=== PATIENT | female | born 1955 | race Caucasian/White ===

== ENCOUNTER 2020-04-16 13:31 | Outpatient (CLI) | payer BC ==
--- NOTE | 2020-04-16 16:37 | RAD ---
RIGHT HIP: History: Hip pain. FINDINGS: Femoral head contour is normal. No significant degenerative change. No fracture or acute osseous lesi on. IMPRESSION: Unremarkable right hip. POS: AGW
--- NOTE | 2020-04-16 17:07 | RAD ---
RIGHT KNEE THREE VIEWS: History: Knee pain FINDINGS: Moderate degenerative changes. Bilateral marginal osteophytes and spurring from the tibial spines. Mi ld loss of medial joint space. Prominent spurring and joint narrowing at the patellofemoral joint. No significant effusions. No fracture. IMPRESSION: Moderate degenerative changes as described. POS: AGW
== END 2020-04-16 13:32 | disposition home or self-care (01) ==
LOC: SCSRAD 13:31
PROVIDERS: ATTEND Family Medicine
DX: M79.604 Pain in right leg (principal); M17.11 Unilateral primary osteoarthritis, right knee

== ENCOUNTER 2021-06-16 13:42 | Outpatient (CLI) | payer MEDICARE | END 2021-06-16 13:43 | disposition home or self-care (01) | LOC: LABBT 13:42 | PROVIDERS: ATTEND Orthopaedic Surgery | DX: Z01.818 Encounter for other preprocedural examination (principal); M17.11 Unilateral primary osteoarthritis, right knee; Z20.822 Contact with and (suspected) exposure to COVID-19 | CPT/HCPCS: 71046; 80048; 81003; 85025; 85610; 86850; 86900; 86901; 87081; 93005; U0003; U0005; 93010 ==

== ENCOUNTER 2021-06-21 09:28 | Inpatient (IN) | payer MEDICARE ==
[2021-06-16 15:32] LABS: #Eosinphils 0.3 10x3/uL (0.0-0.5); #Monocytes 0.5 10x3/uL (0.0-1.1); %Basophils 1.1 % (0.0-2.0); %Eosinophils 8.2 % (0.0-6.0); %Lymphocytes 28.3 % (18.0-47.0); %Monocytes 12.7 % (0.0-10.0); Hemoglobin 13.3 g/dL (12.0-15.5); Mean Corpuscular HGB CONC 32.5 g/dL (32.0-36.0); Mean Corpuscular Hemoglobin 29.4 pg (27.0-33.0); Mean Corpuscular Volume 90.5 fl (81.6-98.3); Mean Platelet Volume 8.9 fl (7.4-10.4); Platelet Count 161 10x3/uL (150-450); RBC Distribution Width 12.6 % (11.5-14.5); Red Blood Cell (RBC) Count 4.52 10x6/uL (3.90-5.03); White Blood Cell (WBC) Count 3.8 10x3/uL (3.5-10.5)
[2021-06-16 15:41] LABS: %Neutrophils 51.5 % (40.0-75.0)
[2021-06-16 15:43] LABS: Bilirubin Neg (Negative); Blood, Urine Negative (Negative); Clarity Cloudy (Clear); Glucose, Urine (Dipstick) Normal (Negative); Ketone, Urine 5 mg/dL (Negative); Leukocyte 500 (Negative); Nitrite Negative (Negative); Protein, Urine (Dipstick) 30 mg/dl (Neg-Trace); Specific Gravity, Urine 1.025 (1.002-1.036)
[2021-06-16 15:45] LABS: Prothrombin Time 11.5 sec (9.5-12.1)
[2021-06-16 16:00] LABS: Anion Gap 14 mmol/L (10-20); BUN (Urea Nitrogen) 17 mg/dL (9.8-20.1); Calc. Creatinine Clearance 0 mL/min (70-130); Calcium 9.7 mg/dL (7.8-10.44); Carbon Dioxide 24 mmol/L (23-31); Chloride 111 mmol/L (98-107); Glucose 96 mg/dL (80-115); Potassium 4.5 mmol/L (3.5-5.1); Sodium 144 mmol/L (136-145)
[2021-06-17 00:40] LABS: SARS-CoV-2 PCR by NAA Not Detected (NotDetected)
[2021-06-17 14:23] VITALS: BMI 37.3
[2021-06-21] MEDS ORDERED: Tranexamic Acid 1,000 MG/10 ML VIAL ONE (09:55)
[2021-06-21] MEDS ORDERED: Sodium Chloride 0.9% 100 ML ONE (09:55)
[2021-06-21] MEDS ORDERED: ceFAZolin 2 GM/DEX 5% 100 ML BAG ONE (09:55)
[2021-06-21] MEDS ORDERED: Vancomycin 1.5 GRAM/300 ML BAG 1.5 GM in Premix Bag 1 BAG IVPB SCH (10:15)
[2021-06-21] MEDS ORDERED: Fentanyl 100 MCG/2 ML VIAL ONE ×5 (10:54→16:07)
[2021-06-21] MEDS ORDERED: Midazolam HCl 2 mg/2 ml Vial ONE (10:54)
[2021-06-21] MEDS ORDERED: Bupivacaine HCl 0.5%/Epinephrine 1:200,000/PF 30 ml Vial ONE (12:05)
[2021-06-21] MEDS ORDERED: PROPOFOL 200 MG/20 ML VIAL ONE (12:05)
[2021-06-21] MEDS ORDERED: ePHEDrine 50 MG/ML VIAL ONE (12:05)
[2021-06-21] MEDS ORDERED: Ondansetron PF 4 MG/2 ML Vial ONE (12:05)
[2021-06-21] MEDS ORDERED: Dexamethasone 20 MG/5 ML VIAL ONE (12:05)
[2021-06-21] MEDS ORDERED: Ketorolac Tromethamine 30 MG/ML VIAL ONE (12:05)
[2021-06-21] MEDS ORDERED: Ondansetron PF 4 MG/2 ML Vial IVP PRN ×2 (12:08→12:30)
[2021-06-21] MEDS ORDERED: HYDROcodone/Acetaminophen 10/325 mg Tablet PO PRN ×2 (12:08)
[2021-06-21] MEDS ORDERED: Acetaminophen 325 MG TAB PO PRN (12:08)
[2021-06-21] MEDS ORDERED: traMADol HCl 50 MG TAB PO PRN ×2 (12:08→12:30)
[2021-06-21] MEDS ORDERED: Fentanyl 100 MCG/2 ML VIAL SLOW IVP PRN (12:08)
[2021-06-21] MEDS ORDERED: Promethazine HCl 25 MG/ML VIAL IM PRN ×2 (12:08→12:30)
[2021-06-21] MEDS ORDERED: Zolpidem Tartrate 5 MG TAB PO PRN ×2 (12:08→12:30)
[2021-06-21] MEDS ORDERED: Fentanyl 100 MCG/2 ML VIAL IV PRN (12:22)
[2021-06-21] MEDS ORDERED: Ropivacaine 0.2% 550 ML 550 ML NERVE BLCK SCH (12:30)
[2021-06-21] MEDS ORDERED: Bupivacaine PF 0.5% 30 ML VIAL ONE (12:33)
[2021-06-21] MEDS ORDERED: Albuterol Sulfate 1.25 MG/3 ML NEB ONE (13:51)
[2021-06-21] MEDS ORDERED: Bupivacaine 0.5% 10 ML VIAL ONE (14:04)
[2021-06-21] MEDS: Sodium Chloride 0.9% 1,000 ML IV SCH ×2 (16:18→22:54)
[2021-06-21] MEDS ORDERED: CEFAZOLIN 2 GM in Premix Bag 1 BAG IVPB SCH (18:00)
[2021-06-21] MEDS: Ketorolac Tromethamine 30 MG/ML VIAL IVP SCH ×2 (18:43→23:20)
[2021-06-21] MEDS: ceFAZolin Sodium/D5W 2 GM in Premix Bag 1 BAG IVPB SCH (18:43)
[2021-06-21] MEDS: Cholecalciferol 1,000 UNITS (25 MCG) TAB PO SCH (20:51)
[2021-06-21] MEDS: Atorvastatin Calcium 20 MG TAB PO SCH (20:51)
[2021-06-21] MEDS: Aspirin 81 mg Enteric Coated Tablet PO SCH (20:51)
[2021-06-21] MEDS: Montelukast Sodium 10 mg Tablet PO SCH (20:51)
[2021-06-21] MEDS: Loratadine 10 MG TAB PO SCH (20:51)
[2021-06-21] MEDS ORDERED: Non-Formulary Item 1 EACH (Multivit-Min/Iron/Folic/Lutein [Centrum Silver Women] 1 TABLET PO SCH (21:00)
[2021-06-21] MEDS ORDERED: Vancomycin HCl 1.5 GM in Sodium Chloride 0.9% 250 ML 300 ML IVPB SCH (21:00)
[2021-06-21] MEDS ORDERED: Non-Formulary Item 1 EACH (Umeclidinium Brm/Vilanterol Tr [Anoro Ellipta] 62.5 MCG/25 MCG INH SCH (21:00)
[2021-06-21] MEDS: Citrucel 500 MG TAB PO SCH (21:35)
[2021-06-21] MEDS: HYDROcodone/Acetaminophen 10/325 mg Tablet PO PRN (21:53)
[2021-06-22] MEDS: ceFAZolin Sodium/D5W 2 GM in Premix Bag 1 BAG IVPB SCH (02:46)
[2021-06-22 06:06] LABS: #Lymphocytes 0.7 thou/uL (1.20-3.40); #Monocytes 0.9 thou/uL (0.11-0.59); #Neutrophils 6.9 thou/uL (1.40-6.50); %Eosinophils 0.2 % (0.0-10.0); %Lymphocytes 8.3 % (21.0-51.0); %Neutrophils 80.5 % (42.0-75.0); Hemoglobin 10.6 g/dL (12.0-16.0); Mean Corpuscular HGB CONC 33.6 g/dL (32.0-36.0); Mean Corpuscular Hemoglobin 30.9 pg (27.0-31.0); Mean Corpuscular Volume 91.9 fL (78.0-98.0); Platelet Count 157 thou/uL (130-400); RBC Distribution Width 11.8 % (11.5-14.5); Red Blood Cell (RBC) Count 3.43 mill/uL (4.20-5.40); White Blood Cell (WBC) Count 8.5 thou/uL (4.8-10.8)
[2021-06-22] MEDS: Ketorolac Tromethamine 30 MG/ML VIAL IVP SCH ×4 (06:22→23:05)
[2021-06-22 06:27] LABS: Anion Gap 10 mmol/L (10-20); BUN (Urea Nitrogen) 18 mg/dL (9.8-20.1); Calc. Creatinine Clearance 106 mL/min (70-130); Calcium 8.4 mg/dL (7.8-10.44); Carbon Dioxide 24 mmol/L (23-31); Chloride 108 mmol/L (98-107); Glucose 119 mg/dL (80-115); Potassium 4.4 mmol/L (3.5-5.1); Sodium 138 mmol/L (136-145)
[2021-06-22] MEDS: CeleCOXIB 100 MG CAP PO SCH (08:38)
[2021-06-22] MEDS: Ferrous Gluconate 324 MG TAB PO SCH ×2 (08:39→20:56)
[2021-06-22] MEDS: Multivitamin W/ Minerals 1 TAB PO SCH (08:39)
[2021-06-22] MEDS: Senokot S 8.6-50 MG TAB PO SCH ×2 (08:39→20:56)
[2021-06-22] MEDS: Magnesium Oxide 400 MG TAB PO SCH (08:39)
[2021-06-22] MEDS: Aspirin 81 mg Enteric Coated Tablet PO SCH ×2 (08:39→22:32)
[2021-06-22] MEDS: Sodium Chloride 0.9% 1,000 ML IV SCH ×2 (08:40→18:04)
[2021-06-22] MEDS: HYDROcodone/Acetaminophen 10/325 mg Tablet PO PRN ×2 (08:43→20:57)
[2021-06-22] MEDS: Calcium Carbonate 600 MG + Vit D TAB PO SCH (20:55)
[2021-06-22] MEDS: Cholecalciferol 1,000 UNITS (25 MCG) TAB PO SCH (20:56)
[2021-06-22] MEDS: Montelukast Sodium 10 mg Tablet PO SCH (20:56)
[2021-06-22] MEDS: Atorvastatin Calcium 20 MG TAB PO SCH (20:56)
[2021-06-22] MEDS: Rivaroxaban 10 MG TAB PO SCH (20:56)
[2021-06-22] MEDS: Loratadine 10 MG TAB PO SCH (20:56)
[2021-06-22] MEDS: Citrucel 500 MG TAB PO SCH (22:32)
[2021-06-23] MEDS: HYDROcodone/Acetaminophen 10/325 mg Tablet PO PRN ×5 (01:11→20:38)
[2021-06-23] MEDS: Sodium Chloride 0.9% 1,000 ML IV SCH ×2 (04:21→18:39)
[2021-06-23 05:19] LABS: Hemoglobin 10.1 g/dL (12.0-16.0); Mean Corpuscular HGB CONC 33.4 g/dL (32.0-36.0); Mean Corpuscular Hemoglobin 30.6 pg (27.0-31.0); Mean Corpuscular Volume 91.7 fL (78.0-98.0); Mean Platelet Volume 6.1 fL (7.4-10.4); Platelet Count 130 thou/uL (130-400); RBC Distribution Width 11.9 % (11.5-14.5); White Blood Cell (WBC) Count 5.6 thou/uL (4.8-10.8)
[2021-06-23] MEDS: Ketorolac Tromethamine 30 MG/ML VIAL IVP SCH ×2 (05:19→11:29)
[2021-06-23] MEDS: Multivitamin W/ Minerals 1 TAB PO SCH (08:28)
[2021-06-23] MEDS: Senokot S 8.6-50 MG TAB PO SCH ×2 (08:28→20:30)
[2021-06-23] MEDS: CeleCOXIB 100 MG CAP PO SCH (08:28)
[2021-06-23] MEDS: Ferrous Gluconate 324 MG TAB PO SCH ×2 (08:29→20:30)
[2021-06-23] MEDS: Magnesium Oxide 400 MG TAB PO SCH (08:29)
[2021-06-23] MEDS: Aspirin 81 mg Enteric Coated Tablet PO SCH ×2 (08:35→21:12)
[2021-06-23] MEDS: Montelukast Sodium 10 mg Tablet PO SCH (20:30)
[2021-06-23] MEDS: Atorvastatin Calcium 20 MG TAB PO SCH (20:31)
[2021-06-23] MEDS: Calcium Carbonate 600 MG + Vit D TAB PO SCH (20:31)
[2021-06-23] MEDS: Gabapentin 100 MG CAP PO SCH (20:31)
[2021-06-23] MEDS: Rivaroxaban 10 MG TAB PO SCH (20:31)
[2021-06-23] MEDS: Cholecalciferol 1,000 UNITS (25 MCG) TAB PO SCH (20:31)
[2021-06-23] MEDS: Loratadine 10 MG TAB PO SCH (20:31)
[2021-06-23] MEDS: Citrucel 500 MG TAB PO SCH (20:32)
[2021-06-24] MEDS: Sodium Chloride 0.9% 1,000 ML IV SCH ×3 (01:45→23:37)
[2021-06-24] MEDS: HYDROcodone/Acetaminophen 10/325 mg Tablet PO PRN ×5 (01:51→23:01)
[2021-06-24 05:20] LABS: Hemoglobin 10.1 g/dL (12.0-16.0); Mean Corpuscular HGB CONC 33.5 g/dL (32.0-36.0); Mean Corpuscular Hemoglobin 30.7 pg (27.0-31.0); Mean Corpuscular Volume 91.5 fL (78.0-98.0); Mean Platelet Volume 6.4 fL (7.4-10.4); Platelet Count 154 thou/uL (130-400); RBC Distribution Width 11.6 % (11.5-14.5); Red Blood Cell (RBC) Count 3.28 mill/uL (4.20-5.40); White Blood Cell (WBC) Count 4.4 thou/uL (4.8-10.8)
[2021-06-24] MEDS: Aspirin 81 mg Enteric Coated Tablet PO SCH ×2 (08:01→20:46)
[2021-06-24] MEDS: CeleCOXIB 100 MG CAP PO SCH (09:03)
[2021-06-24] MEDS: Multivitamin W/ Minerals 1 TAB PO SCH (09:05)
[2021-06-24] MEDS: Senokot S 8.6-50 MG TAB PO SCH ×2 (09:05→20:44)
[2021-06-24] MEDS: Ferrous Gluconate 324 MG TAB PO SCH ×2 (09:06→20:45)
[2021-06-24] MEDS: Magnesium Oxide 400 MG TAB PO SCH (09:06)
[2021-06-24] MEDS: traMADol HCl 50 MG TAB PO PRN ×3 (09:09→22:10)
[2021-06-24] MEDS: Rivaroxaban 10 MG TAB PO SCH (20:44)
[2021-06-24] MEDS: Cholecalciferol 1,000 UNITS (25 MCG) TAB PO SCH (20:44)
[2021-06-24] MEDS: Loratadine 10 MG TAB PO SCH (20:45)
[2021-06-24] MEDS: Atorvastatin Calcium 20 MG TAB PO SCH (20:45)
[2021-06-24] MEDS: Gabapentin 100 MG CAP PO SCH (20:45)
[2021-06-24] MEDS: Calcium Carbonate 600 MG + Vit D TAB PO SCH (20:45)
[2021-06-24] MEDS: Montelukast Sodium 10 mg Tablet PO SCH (20:45)
[2021-06-24] MEDS: Citrucel 500 MG TAB PO SCH (20:46)
[2021-06-25] MEDS: HYDROcodone/Acetaminophen 10/325 mg Tablet PO PRN ×4 (03:07→16:34)
[2021-06-25] MEDS: traMADol HCl 50 MG TAB PO PRN ×3 (04:34→15:27)
[2021-06-25 05:10] LABS: Hemoglobin 9.1 g/dL (12.0-16.0); Mean Corpuscular HGB CONC 33.1 g/dL (32.0-36.0); Mean Corpuscular Hemoglobin 30.6 pg (27.0-31.0); Mean Corpuscular Volume 92.3 fL (78.0-98.0); Mean Platelet Volume 6.4 fL (7.4-10.4); Platelet Count 162 thou/uL (130-400); RBC Distribution Width 11.6 % (11.5-14.5); Red Blood Cell (RBC) Count 2.98 mill/uL (4.20-5.40); White Blood Cell (WBC) Count 3.1 thou/uL (4.8-10.8)
[2021-06-25] MEDS: Sodium Chloride 0.9% 1,000 ML IV SCH ×2 (07:29→14:33)
[2021-06-25] MEDS: Aspirin 81 mg Enteric Coated Tablet PO SCH (08:27)
[2021-06-25] MEDS: Magnesium Oxide 400 MG TAB PO SCH (08:27)
[2021-06-25] MEDS: CeleCOXIB 100 MG CAP PO SCH (08:27)
[2021-06-25] MEDS: Ferrous Gluconate 324 MG TAB PO SCH (08:28)
[2021-06-25] MEDS: Multivitamin W/ Minerals 1 TAB PO SCH (08:28)
[2021-06-25] MEDS: Senokot S 8.6-50 MG TAB PO SCH (08:28)
[2021-06-25] MEDS ORDERED: Ergocalciferol 1.25 MG(50,000 UNITS) CAP PO SCH (09:00)
[2021-06-25] MEDS: diphenhydrAMINE 25 MG CAP PO PRN ×2 (11:14→16:34)
[2021-06-25 16:11] VITALS: BP 99/70; TEMP 98.6
== END 2021-06-25 17:23 | disposition home or self-care (01) | DRG 470 ==
LOC: SDC 09:28 → SURG A 12:08
PROVIDERS: ADMIT Orthopaedic Surgery; ATTEND Internal Medicine
PROC: 0SRC0J9 Replacement of Right Knee Joint with Synthetic Substitute, Cemented, Open Approach (ICD-10-PCS; principal; 2021-06-21)
DX: M17.11 Unilateral primary osteoarthritis, right knee (principal); J96.10 Chronic respiratory failure, unspecified whether with hypoxia or hypercapnia; D68.2 Hereditary deficiency of other clotting factors; Z20.822 Contact with and (suspected) exposure to COVID-19; E78.5 Hyperlipidemia, unspecified; Z96.652 Presence of left artificial knee joint; J98.6 Disorders of diaphragm; J30.9 Allergic rhinitis, unspecified; F32.A Depression, unspecified; Z85.3 Personal history of malignant neoplasm of breast; Z92.21 Personal history of antineoplastic chemotherapy; Z86.718 Personal history of other venous thrombosis and embolism; Z90.11 Acquired absence of right breast and nipple; Z90.710 Acquired absence of both cervix and uterus; Z98.890 Other specified postprocedural states; Z79.01 Long term (current) use of anticoagulants; Z79.899 Other long term (current) drug therapy; Z88.1 Allergy status to other antibiotic agents; Z88.2 Allergy status to sulfonamides
CPT/HCPCS: 36415; 80048; 81003; 85025; 85027; 85610; 86850; 86900; 86901; 87081; 94640; A4306; C1713; C1776; J1100; J1885; J2250; J2405; J2704; J2795; J3010; J3370; J3490; J7050; J7620; S0020; U0003; U0005

== ENCOUNTER 2022-10-03 05:53 | Day surgery (SDC) | payer MEDICARE ==
[2022-09-29 11:13] VITALS: BMI 36.6
[2022-10-03] MEDS ORDERED: Ketamine 50 MG/ML (10ML VIAL) ONE (07:30)
== END 2022-10-03 09:49 | disposition home or self-care (01) ==
LOC: SDC 05:53
PROVIDERS: ATTEND Internal Medicine
PROC: 0DJD8ZZ Inspection of Lower Intestinal Tract, Via Natural or Artificial Opening Endoscopic (ICD-10-PCS; principal; 2022-10-03)
PROC: 0DB78ZX Excision of Stomach, Pylorus, Via Natural or Artificial Opening Endoscopic, Diagnostic (ICD-10-PCS; 2022-10-03)
PROC: 0D758ZZ Dilation of Esophagus, Via Natural or Artificial Opening Endoscopic (ICD-10-PCS; 2022-10-03)
DX: Z12.11 Encounter for screening for malignant neoplasm of colon (principal); K57.30 Diverticulosis of large intestine without perforation or abscess without bleeding; K64.8 Other hemorrhoids; K31.9 Disease of stomach and duodenum, unspecified; K21.9 Gastro-esophageal reflux disease without esophagitis; K29.80 Duodenitis without bleeding; R13.10 Dysphagia, unspecified; E78.00 Pure hypercholesterolemia, unspecified; D68.2 Hereditary deficiency of other clotting factors; M19.90 Unspecified osteoarthritis, unspecified site; R09.02 Hypoxemia; Z86.010 Personal history of colon polyps; Z83.71 Family history of colonic polyps; Z90.49 Acquired absence of other specified parts of digestive tract; Z88.1 Allergy status to other antibiotic agents; Z88.2 Allergy status to sulfonamides; Z91.048 Other nonmedicinal substance allergy status; Z86.711 Personal history of pulmonary embolism; Z79.01 Long term (current) use of anticoagulants; Z79.1 Long term (current) use of non-steroidal anti-inflammatories (NSAID); Z79.899 Other long term (current) drug therapy; Z99.81 Dependence on supplemental oxygen; Z85.3 Personal history of malignant neoplasm of breast
CPT/HCPCS: 43239; 43248; G0121; 88305; 88342